=== PATIENT | female | born 2000 | race African-American/Black ===

== ENCOUNTER 2021-09-12 13:49 | Outpatient (CLI) | payer OTHER, SELFPAY ==
[2021-09-12 15:07] LABS: Beta HCG Quantitative < 2.39 mIU/ML
[2021-09-12 15:31] LABS: HIV 1/2 Ab P24 Ag Result Negative (Negative)
[2021-09-12 18:45] LABS: Hepatitis B Surface Antigen Negative (Negative)
[2021-09-12 19:02] LABS: Hepatitis C Virus Antibody Negative (Negative)
[2021-09-13 12:37] LABS: Rapid Plasma Reagin Non-Reactive (NonReactive)
== END 2021-09-12 13:50 | disposition home or self-care (01) ==
LOC: ANHLAB 13:52
PROVIDERS: PCP Family Medicine; Visit Provider Obstetrics & Gynecology
DX: Z20.2 Contact with and (suspected) exposure to infections with a predominantly sexual mode of transmission (principal); N92.6 Irregular menstruation, unspecified
CPT/HCPCS: 36415; 84702; 86592; 86703; 86803; 87340; G0432

== ENCOUNTER 2021-10-08 08:09 | Outpatient (CLI) | payer OTHER, SELFPAY ==
--- NOTE | ~2021-10-08 | US_ITS ---
EXAMINATION: US pelvic complete w TV EXAM DATE: 10/08/2021 08:55 INDICATION: R10.2 - Pelvic and perineal pain . TECHNIQUE: Pelvic transabdominal and transvaginal sonogram was performed. There are multiple graysca le and Doppler images available for interpretation. There is no prior study for comparison. FINDINGS: Uterus measures 6.9 x 3.7 x 4.4 cm, and is morphologically normal. Endometrial stripe mragret sures 9 mm, within normal limits. There is possible bicornuate uterus, endometrium may split at the f undus. There is no free pelvic fluid. Right adnexa: The ovary measures 2.7 x 1.4 x 1.7 cm and is morphologically normal. Ovarian vascular f low confirmed. Left adnexa: The ovary is not identified. There is no adnexal mass. IMPRESSION: 1. 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 Reviewed, dictated and finalized at location A. STANT SCIENTIST
== END 2021-10-08 08:10 | disposition home or self-care (01) ==
LOC: ANHIMG 08:16
PROVIDERS: PCP Family Medicine; Visit Provider Obstetrics & Gynecology
DX: R10.2 Pelvic and perineal pain (principal); N92.6 Irregular menstruation, unspecified; Z87.59 Personal history of other complications of pregnancy, childbirth and the puerperium
CPT/HCPCS: 76830; 76856

== ENCOUNTER 2021-11-29 09:29 | Emergency (ER) | payer OTHER, SELFPAY ==
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
[2021-11-29 09:32] VITALS: BP 137/81; PULSE 94; RESP 14; TEMP 36.6; O2SAT 100
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
== END 2021-11-29 10:30 | disposition home or self-care (01) ==
PROVIDERS: Emergency Provider Nurse Practitioner Family; PCP Family Medicine
DX: S09.90XA Unspecified injury of head, initial encounter (principal); S16.1XXA Strain of muscle, fascia and tendon at neck level, initial encounter; V49.40XA Driver injured in collision with unspecified motor vehicles in traffic accident, initial encounter
CPT/HCPCS: 70450; 72125; 99284

== ENCOUNTER 2022-10-30 10:22 | Outpatient (CLI) | payer OTHER, SELFPAY ==
[2022-10-30 11:37] LABS: Hepatitis B Surface Antigen Negative (Negative)
[2022-10-30 11:41] LABS: HIV 1/2 Ab P24 Ag Result Negative (Negative)
[2022-10-30 11:55] LABS: Hepatitis C Virus Antibody Negative (Negative)
[2022-10-30 16:08] LABS: Rapid Plasma Reagin Non-Reactive (NonReactive)
== END 2022-10-30 10:23 | disposition home or self-care (01) ==
LOC: ANHLAB 10:25
PROVIDERS: PCP Family Medicine; Visit Provider Obstetrics & Gynecology
DX: Z20.2 Contact with and (suspected) exposure to infections with a predominantly sexual mode of transmission (principal)
CPT/HCPCS: 36415; 86592; 86703; 86803; 87340; G0432

== ENCOUNTER 2022-12-10 10:08 | Outpatient (CLI) | payer OTHER, SELFPAY ==
--- NOTE | ~2022-12-10 | US_ITS ---
EXAMINATION: US pelvic complete w TV DATE: 12/10/2022 10:56 INDICATION: Pelvic pain. Irregular bleeding. TECHNIQUE: Multiple transabdominal and transvaginal sonographic images of the pelvis were obtained. COMPARISON: Ultrasound 10/08/2021 FINDINGS: TRANSABDOMINAL ULTRASOUND: The uterus measures 9.0 x 3.5 x 5.0 cm. The uterus is septate. There is no free fluid in the pelvis. TRANSVAGINAL ULTRASOUND: The endometrial complex measures 12 mm in thickness. The right ovary measures 3.4 x 2.5 x 1.5 cm. The left ovary 2.9 x 2.0 x 2.3 cm. There is normal vascular flow in the ovaries. IMPRESSION: 1. Septate uterus. Reviewed, dictated and finalized at location A. SPHERIC PHYSICIST IMPRESSION: 1. Septate uterus.
== END 2022-12-10 10:09 | disposition home or self-care (01) ==
PROVIDERS: PCP Family Medicine; Visit Provider Obstetrics & Gynecology
DX: Z87.42 Personal history of other diseases of the female genital tract (principal); Q51.28 Other and unspecified doubling of uterus
CPT/HCPCS: 76830; 76856

== ENCOUNTER 2023-11-16 08:10 | Outpatient (CLI) | payer OTHER, SELFPAY ==
[2023-11-16 09:43] LABS: Hepatitis B Surface Antigen Negative (Negative)
[2023-11-16 09:50] LABS: HIV 1/2 Ab P24 Ag Result Negative (Negative)
[2023-11-16 10:00] LABS: Hepatitis C Virus Antibody Negative (Negative)
[2023-11-16 10:42] LABS: Rapid Plasma Reagin Non-Reactive (NonReactive)
== END 2023-11-16 08:11 | disposition home or self-care (01) ==
LOC: ANHLAB 08:12
PROVIDERS: PCP Family Medicine; Visit Provider Registered Nurse
DX: Z20.2 Contact with and (suspected) exposure to infections with a predominantly sexual mode of transmission (principal)
CPT/HCPCS: 36415; 86592; 86703; 86803; 87340; G0432

== ENCOUNTER 2023-12-25 09:41 | Outpatient (CLI) | payer OTHER, SELFPAY ==
--- NOTE | ~2023-12-25 | US_ITS ---
Pelvic ultrasound. Clinical History: Abnormal uterine bleeding Technique: Realtime transabdominal and transvaginal scanning of the pelvis was performed. Color flow Doppler and Doppler spectral analysis were performed. Findings: The uterus is anteverted. The endometrial stripe has a thickness of 6 mm. Endometrial cavi ty splits into 2 distinct cornua, consistent with septate uterus. No focal mass is identified. The right ovary measures 2.3 x 1.4 x 1.1 cm. No significant right ovarian or adnexal mass is seen. The left ovary measures 1.3 x 2.1 x 2.1 cm. No significant left ovarian or adnexal mass is seen. Vascular flow present in both ovaries on Doppler spectral analysis. There is and a small amount of free fluid in the cul de sac. Impression: Septate uterus. Small amount of free fluid. Reviewed, dictated and finalized at [facility]. Impression: Septate uterus. Small amount of free fluid.
== END 2023-12-25 09:42 | disposition home or self-care (01) ==
LOC: ANHIMG 09:45
PROVIDERS: PCP Internal Medicine; Visit Provider Registered Nurse
DX: N93.9 Abnormal uterine and vaginal bleeding, unspecified (principal); Q51.28 Other and unspecified doubling of uterus
CPT/HCPCS: 76830; 76856

== ENCOUNTER 2024-02-17 16:38 | Outpatient (CLI) | payer OTHER, SELFPAY ==
[2024-02-17 17:23] LABS: Basophils Percent Auto 0.6 % (0.2-1.2); Eosinophils Absolute Auto 0.1 K/mm3 (0-0.3); Eosinophils Percent Auto 0.9 % (0-4.4); Hematocrit 34.4 % (37.0-47.0); Hemoglobin 11.2 g/dL (12.0-15.0); Immature Granulocyte Absolute 0.02 K/mm3 (0.00-0.031); Immature Granulocyte Percent A 0.3 % (0-0.5); Lymphocytes Percent Auto 36.3 % (18.3-44.2); Mean Corpuscular HGB Conc 32.6 g/dl (32-36); Mean Corpuscular Hemoglobin 26.5 pg (26-34); Mean Corpuscular Volume 81.5 fl (80-100); Monocytes Absolute Auto 0.4 K/mm3 (0.1-0.6); Monocytes Percent Auto 5.8 % (2.6-8.5); Neutrophils Absolute Auto 3.5 K/mm3 (1.3-6.7); Neutrophils Percent Auto 56.1 % (45.5-73.1); Platelet Count Result 310 k/mm3 (150-375); Red Blood Count 4.22 M/mm3 (4.2-5.4); Red Cell Distribution Width 14.4 % (11.5-14.5); White Blood Count 6.3 K/mm3 (4.5-10.0)
[2024-02-17 17:34] LABS: Alanine Aminotransferase 20 U/L (6-35); Albumin Level 4.6 g/dL (3.5-5.1); Alkaline Phosphatase 75 U/L (38-126); Anion Gap 9 mmol/L (4-12); Aspartate Amino Transferase 22 U/L (14-36); Bilirubin,Total 0.4 mg/dL (0.2-1.3); Blood Urea Nitrogen 11 mg/dL (7-17); Calcium 9.4 mg/dL (8.4-10.2); Carbon Dioxide 20 mmol/L (22-30); Chloride 111 mmol/L (98-107); Cholesterol 181 mg/dL (0-200); Estimated Glomerular Filt Rate > 60; Glucose 97 mg/dL (65-110); HDL Direct 53 mg/dL; Potassium 3.9 mmol/L (3.4-5.0); Sodium 140 mmol/L (137-145); Triglycerides 149 mg/dL (<150)
[2024-02-17 17:45] LABS: LDL Cholesterol Direct 94 mg/dL
[2024-02-17 18:16] LABS: Hemoglobin A1C 5.1 % (<5.7)
== END 2024-02-17 16:39 | disposition home or self-care (01) ==
LOC: ANHLAB 16:40
PROVIDERS: PCP Internal Medicine; Visit Provider Internal Medicine
DX: Z00.00 Encounter for general adult medical examination without abnormal findings (principal); Z13.29 Encounter for screening for other suspected endocrine disorder; Z13.220 Encounter for screening for lipoid disorders; Z13.1 Encounter for screening for diabetes mellitus
CPT/HCPCS: 36415; 80053; 80061; 83036; 84443; 85025

== ENCOUNTER 2024-04-22 07:44 | Outpatient (CLI) | payer OTHER, SELFPAY ==
[2024-04-22 08:25] LABS: Basophils Absolute Auto 0.1 K/mm3 (0.0-0.1); Basophils Percent Auto 0.7 % (0.2-1.2); Eosinophils Percent Auto 0.6 % (0-4.4); Immature Granulocyte Absolute 0.01 K/mm3 (0.00-0.031); Immature Granulocyte Percent A 0.1 % (0-0.5); Immature Reticulocyte Fraction 14.1 % (3.0-15.9); Lymphocytes Percent Auto 32.3 % (18.3-44.2); Mean Corpuscular HGB Conc 32.4 g/dl (32-36); Mean Corpuscular Hemoglobin 26.8 pg (26-34); Mean Corpuscular Volume 82.7 fl (80-100); Mean Platelet Volume 11.3 fl (7.4-10.4); Monocytes Absolute Auto 0.5 K/mm3 (0.1-0.6); Monocytes Percent Auto 6.7 % (2.6-8.5); Neutrophils Absolute Auto 4.2 K/mm3 (1.3-6.7); Neutrophils Percent Auto 59.6 % (45.5-73.1); Platelet Count Result 286 k/mm3 (150-375); Red Blood Count 4.11 M/mm3 (4.2-5.4); Red Cell Distribution Width 14.2 % (11.5-14.5); Reticulocyte Hemoglobin Conten 31.1 pg (28.2-36.6); Reticulocyte Percent 1.07 % (0.7-4.3); Reticulocytes Absolute 0.04 10^6/uL (0.02-0.10); White Blood Count 7.1 K/mm3 (4.5-10.0)
[2024-04-22 08:30] LABS: Iron 66 ug/dL (37-170)
[2024-04-22 08:39] LABS: Percent Iron Saturation 16 % (20-50)
== END 2024-04-22 07:45 | disposition home or self-care (01) ==
LOC: ANHLAB 07:46
PROVIDERS: PCP Internal Medicine; Visit Provider Internal Medicine
DX: R53.82 Chronic fatigue, unspecified (principal); N92.1 Excessive and frequent menstruation with irregular cycle
CPT/HCPCS: 36415; 82728; 83540; 83550; 85025; 85046; 86038; 86039

== ENCOUNTER 2024-05-06 08:39 | Outpatient (CLI) | payer OTHER, SELFPAY ==
[2024-05-08 09:57] LABS: Prolactin 3.9 ng/mL
== END 2024-05-06 08:40 | disposition home or self-care (01) ==
LOC: ANHLAB 08:46
PROVIDERS: PCP Internal Medicine; Visit Provider Nurse Practitioner Obstetrics & Gynecology
DX: N92.6 Irregular menstruation, unspecified (principal)
CPT/HCPCS: 36415; 84146; 84443

== ENCOUNTER 2024-05-15 20:01 | Emergency (ER) | payer OTHER, SELFPAY ==
--- NOTE | ~2024-05-15 | XR_ITS ---
EXAMINATION: XR chest 2V DATE: 05/15/2024 21:07 INDICATION: Shortness of breath. TECHNIQUE: Frontal and lateral views of the chest were obtained. COMPARISON: Chest single view 06/18/2022 FINDINGS: There is no pneumonia, pleural effusion, or pneumothorax. The heart size is normal. IMPRESSION: 1. No acute cardiopulmonary disease. Reviewed, dictated and finalized at location E.
--- NOTE | 2024-05-15 20:16 | ECG_ITS ---
Test Date: 2024-05-15 20:42:10 Measurements Intervals [place] Rate: 74 P: 48 LA: 200 QRS: 32 QRSD: 81 T: 6 QT: 387 QTc: 431 Interpretive Statements SINUS RHYTHM NORMAL ELECTROCARDIOGRAM No previous ECG available for comparison Electronically Signed On 05-16-2024 12:23:25 CDT by Turner Rodarte M.D.
[2024-05-15 20:18] VITALS: BP 124/84; PULSE 74; RESP 20; TEMP 36.6; O2SAT 100
[2024-05-15 22:04] VITALS: O2SAT 100
[2024-05-15 22:05] VITALS: BP 143/78; PULSE 72; RESP 17; O2SAT 100
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
[2024-05-15] MEDS: KETOROLAC 15 MG/ML VIAL (*BKC) IV PUSH (23:15)
[2024-05-15 23:27] LABS: Basophils Percent Auto 0.6 % (0.2-1.2); Eosinophils Absolute Auto 0.1 K/mm3 (0-0.3); Hematocrit 35.4 % (37.0-47.0); Hemoglobin 11.6 g/dL (12.0-15.0); Immature Granulocyte Absolute 0.02 K/mm3 (0.00-0.031); Immature Granulocyte Percent A 0.3 % (0-0.5); Lymphocytes Absolute Auto 2.26 K/mm3 (0.9-3.2); Lymphocytes Percent Auto 33.5 % (18.3-44.2); Mean Corpuscular HGB Conc 32.8 g/dl (32-36); Mean Corpuscular Hemoglobin 27.1 pg (26-34); Mean Corpuscular Volume 82.7 fl (80-100); Mean Platelet Volume 11.2 fl (7.4-10.4); Monocytes Absolute Auto 0.4 K/mm3 (0.1-0.6); Monocytes Percent Auto 6.2 % (2.6-8.5); Neutrophils Absolute Auto 3.9 K/mm3 (1.3-6.7); Neutrophils Percent Auto 58.4 % (45.5-73.1); Platelet Count Result 296 k/mm3 (150-375); Red Blood Count 4.28 M/mm3 (4.2-5.4); Red Cell Distribution Width 13.6 % (11.5-14.5); White Blood Count 6.7 K/mm3 (4.5-10.0)
[2024-05-15 23:40] VITALS: BP 125/66; PULSE 74; RESP 15; O2SAT 100
[2024-05-15 23:40] LABS: Partial Thromboplastin Time 34.1 Seconds (22.3-36.8); Prothrombin Time 13.8 Seconds (11.1-14.7)
[2024-05-15 23:50] LABS: Alanine Aminotransferase 26 U/L (6-35); Albumin Level 4.5 g/dL (3.5-5.1); Alkaline Phosphatase 83 U/L (38-126); Anion Gap 10 mmol/L (4-12); Aspartate Amino Transferase 29 U/L (14-36); Bilirubin,Total 0.5 mg/dL (0.2-1.3); Blood Urea Nitrogen 12 mg/dL (7-17); Calcium 9.2 mg/dL (8.4-10.2); Carbon Dioxide 28 mmol/L (22-30); Chloride 99 mmol/L (98-107); Estimated CRCL calculation 89 ml/min; Estimated Glomerular Filt Rate > 60; Glucose 82 mg/dL (65-110); Potassium 3.9 mmol/L (3.4-5.0); Sodium 137 mmol/L (137-145)
[2024-05-16 00:02] LABS: Influenza A QL RT-PCR Negative (Negative); Influenza B QL RT-PCR Negative (Negative); RSV RNA, RT-PCR Negative (Negative); SARS-CoV-2 RNA PCR Negative (Negative); Troponin I < 0.012 ng/mL (0.000-0.034)
[2024-05-16 00:46] VITALS: BP 126/69; PULSE 76; RESP 15; O2SAT 99
== END 2024-05-16 00:47 | disposition home or self-care (01) ==
PROVIDERS: Emergency Provider Physician Assistant; PCP Internal Medicine
DX: M94.0 Chondrocostal junction syndrome [Tietze] (principal); Z20.822 Contact with and (suspected) exposure to COVID-19
CPT/HCPCS: 36415; 71046; 80053; 84484; 85025; 85610; 85730; 87637; 93005; 96374; 99284; J1885

== ENCOUNTER 2024-06-08 08:08 | Outpatient (CLI) | payer OTHER, SELFPAY ==
--- NOTE | ~2024-06-08 | MR_ITS ---
EXAMINATION: MR pelvis wo/w con DATE: 06/08/2024 09:43 INDICATION: Other and unspecified doubling of uterus. Abnormal uterine bleeding. Pelvic pain. TECHNIQUE: Magnetic resonance imaging (MRI) of the pelvis was performed without and with 17 mL MultiH ance intravenous contrast. COMPARISON: Ultrasound pelvis 12/25/2023 FINDINGS: The uterus is septate. The endometrial complex is normal and measures 10 mm. The adnexa are normal. T here is no ascites. There are no pathologically enlarged lymph nodes. There is mild lumbar spondylosi s. IMPRESSION: 1. Septate uterus. Reviewed, dictated and finalized at location A. IMPRESSION: 1. Septate uterus.
== END 2024-06-08 08:09 | disposition home or self-care (01) ==
PROVIDERS: PCP Internal Medicine; Visit Provider Obstetrics & Gynecology
DX: Q51.28 Other and unspecified doubling of uterus (principal)
CPT/HCPCS: 72197; A9577

== ENCOUNTER 2024-08-08 12:59 | Emergency (ER) | payer OTHER, SELFPAY ==
[2024-08-08 13:10] VITALS: BP 127/65; PULSE 87; RESP 20; TEMP 36.6; O2SAT 100
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
[2024-08-08 13:28] LABS: EDSTREPNEGPOS1 Positive (Negative)
== END 2024-08-08 13:45 | disposition home or self-care (01) ==
PROVIDERS: Emergency Provider Nurse Practitioner Family; PCP Internal Medicine
DX: J02.0 Streptococcal pharyngitis (principal)
CPT/HCPCS: 87880; 99213; G0463